=== PATIENT | female | born 2000 | race Caucasian/White ===

== ENCOUNTER 2025-04-03 16:24 | Emergency (ER) | payer BC, OTHER ==
[2025-04-03] MEDS ORDERED: HYDROcodone/Acetaminophen 10/325 mg Tablet ONE (17:31)
== END 2025-04-03 17:33 | disposition home or self-care (01) ==
LOC: ERS 16:24
DX: S39.012A Strain of muscle, fascia and tendon of lower back, initial encounter (principal); V49.50XA Passenger injured in collision with unspecified motor vehicles in traffic accident, initial encounter
CPT/HCPCS: 72100; 99283

== ENCOUNTER 2025-06-29 08:21 | Emergency (ER) | payer BC, OTHER ==
[2025-06-29] MEDS ORDERED: Ketorolac Tromethamine 30 MG (1 mL) VIAL ONE (09:45)
[2025-06-29 10:08] LABS: CAUTI Indications for Culture Pelvic or flank pain; Glucose, Urine (Dipstick) Normal (Negative); Leukocyte 75 Leu/uL (Negative); Protein, Urine (Dipstick) Negative (Neg-Trace); RBC/HPF 0-3 HPF (0-3); Specific Gravity, Urine 1.018 (1.002-1.036)
[2025-06-29 10:09] LABS: Bacteria/HPF 1+ HPF (None Seen); Urine Culture Reflex No No
== END 2025-06-29 10:28 | disposition home or self-care (01) ==
LOC: ERS 08:21
DX: R51.9 Headache, unspecified (principal); N39.0 Urinary tract infection, site not specified
CPT/HCPCS: 81001; 96372; 99284; J1885

== ENCOUNTER 2025-07-14 12:43 | Inpatient (IN) | payer BC, OTHER ==
[2025-07-14] MEDS ORDERED: Metoclopramide HCl 10 MG (2 mL) VIAL ONE ×2 (13:36→23:21)
[2025-07-14] MEDS ORDERED: diphenhydrAMINE 50 MG/ML VIAL ONE ×2 (13:36→23:21)
[2025-07-14 13:55] LABS: Bacteria/HPF None Seen HPF (None Seen); CAUTI Indications for Culture Dysuria,urgency,freq; Glucose, Urine (Dipstick) Normal (Negative); Leukocyte Negative Leu/uL (Negative); Protein, Urine (Dipstick) Negative (Neg-Trace); RBC/HPF 0-3 HPF (0-3); Specific Gravity, Urine 1.024 (1.002-1.036); WBC/HPF 0-3 HPF (0-3)
[2025-07-14 13:59] LABS: Urine Culture Reflex No No
[2025-07-14 14:16] LABS: #Basophils Less than 0.03 10x3/uL (0.0-0.2); #Eosinophils 0.12 10x3/uL (0.0-0.7); #Monocytes 0.31 10x3/uL (0.11-0.59); #Neutrophils 4.16 10x3/uL (1.40-6.50); %Basophils 0.2 % (0.0-1.0); %Eosinophils 1.9 % (0.0-10.0); %Lymphocytes 27.5 % (21.0-51.0); %Monocytes 4.9 % (0.0-10.0); %Neutrophils 65.3 % (42.0-75.0); Hematocrit 35.1 % (36.0-47.0); Hemoglobin 11.5 g/dL (12.0-16.0); Mean Corpuscular Hemoglobin 28.0 pg (27.0-31.0); Mean Corpuscular Volume 85.4 fL (78.0-98.0); Platelet Count 295 10x3/uL (130-400); Red Blood Cell (RBC) Count 4.11 mill/uL (4.20-5.40); White Blood Cell (WBC) Count 6.36 10x3/uL (4.8-10.8)
[2025-07-14 14:39] LABS: BHCG - Serum Negative (NEGATIVE); Pregs Control Background? CLEAR/WHITE (CLR/WHITE); Pregs Control Bar Appear? YES (CONTROL BAR)
[2025-07-14 14:44] LABS: ALT (SGPT) 18 U/L (Less than 34); AST (SGOT) 23 U/L (11-34); Albumin 4.3 g/dL (3.1-4.5); Alkaline Phosphatase 66 U/L (40-110); Anion Gap 14 mmol/L (10-20); BUN (Urea Nitrogen) 13 mg/dL (7.0-18.7); Bilirubin, Total 0.6 mg/dL (0.3-1.2); Calc. Creatinine Clearance 0 mL/min (70-130); Calcium 9.7 mg/dL (7.8-10.44); Carbon Dioxide 22 mmol/L (22-29); Chloride 103 mmol/L (98-107); Globulin 3.1 g/dL (2.4-3.5); Glucose 79 mg/dL (70-105); Lipase 17 U/L (8-78); Potassium 3.9 mmol/L (3.5-5.1); Sodium 135 mmol/L (136-145)
[2025-07-14] MEDS ORDERED: Iopamidol-370 76% 500 ML MDV (1 ML CHARGE) ONE (14:59)
[2025-07-14] MEDS ORDERED: HYDROmorphone 0.5 MG/0.5 ML SYRINGE ONE (21:45)
[2025-07-15 01:56] VITALS: BMI 28.8
[2025-07-15] MEDS ORDERED: Acetaminophen/Codeine 30-300mg Tablet PO PRN (06:22)
[2025-07-15] MEDS ORDERED: Ondansetron PF 4 MG/2 ML Vial IVP PRN (06:22)
[2025-07-15] MEDS ORDERED: HYDROcodone/Acetaminophen 5/325 mg Tablet PO PRN (06:22)
[2025-07-15] MEDS ORDERED: Acetaminophen 325 MG TAB PO PRN (06:22)
[2025-07-15] MEDS: Enoxaparin 40 MG (0.4 mL) SYRINGE SC SCH (08:31)
[2025-07-15 20:23] VITALS: BP 141/95; TEMP 98.6
== END 2025-07-15 21:03 | disposition home or self-care (01) | DRG 103 ==
LOC: ERS 12:43 → 2SE 21:12 → OBSVTOIN 07-15 12:04
PROVIDERS: ADMIT Internal Medicine; ATTEND Family Medicine
DX: R51.9 Headache, unspecified (principal); Z87.440 Personal history of urinary (tract) infections; Z87.19 Personal history of other diseases of the digestive system
CPT/HCPCS: 36415; 36416; 70450; 70496; 70498; 70553; 76376; 80053; 81001; 83690; 84703; 85025; 86141; 96365; 96372; 96375; 96376; G0378; J1171; J1200; J1650; J2272; J2765; J7030; Q9967